=== PATIENT | female | born 1970 | race Caucasian/White ===

== ENCOUNTER 2017-12-27 08:16 | Day surgery (SDC) | payer BC ==
[~2017-12-27 08:16] MED LIST: Lactated Ringers 1,000 ML IV SCH
[2017-12-27] MEDS ORDERED: Propofol 200 MG/20 ML SDV ONE ×2 (10:23→10:36)
[2017-12-27] MEDS ORDERED: fentaNYL 100 MCG/2 ML SDV ONE (10:24)
--- NOTE | 2017-12-27 12:01 | OR ---
PREOPERATIVE DIAGNOSIS: Bleeding internal hemorrhoids. POSTOPERATIVE DIAGNOSIS: Bleeding internal hemorrhoids. PROCEDURE PROPOSED: Anoscopy with hemorrhoid banding x2. PROCEDURE DONE: Anoscopy with hemorrhoid banding x2. INDICATIONS: A 47-year-old female with diagnosed internal hemorrhoids that are bleeding. She also has some external hemorrhoidal tissue. It was felt that she should undergo anoscopy with possible banding. TECHNIQUE: The patient was already sedated from her colonoscopy. The lighted anoscope was then used to inspect all 3 quadrants. In the right anterior quadrant, she had significant hemorrhoid bundle that appeared to be bleeding and oozing some blood. I put 2 hemorrhoid bands in that area using the suction hemorrhoid banding technique. The other 2 quadrants did not appear to have any significant hemorrhoids. This procedure was then terminated, which she tolerated well and will be followed up in the office as needed. SCM: 12/27/2017 10:53:24 MODL: 12/27/2017 11:42:30 /[id number]
--- NOTE | 2017-12-27 12:01 | OR ---
PREOPERATIVE DIAGNOSIS: Rectal bleeding. POSTOPERATIVE DIAGNOSIS: Normal colonoscopic exam, internal hemorrhoids. PROCEDURE PROPOSED: Total flexible colonoscopy. PROCEDURE DONE: Total flexible colonoscopy. INDICATION: This is a 47-year-old female referred for colonoscopy due to history of rectal bleeding. She denies any pain. She has been treated for hemorrhoids and she does feel she has hemorrhoids. She has a negative family history for colon pathology. TECHNIQUE: The patient was brought to the endoscopy suite, placed in left lateral decubitus position. She was sedated per TAXONOMIST with propofol. The flexible video colonoscope was then passed transanally and under visualization advanced to the cecum. Examination revealed normal ascending, transverse, descending, sigmoid, and rectal colon. There was no evidence of any diverticulosis, colitis, or other abnormalities and the scope was then withdrawn. She tolerated the procedure well. She was noted to have some internal hemorrhoids on withdrawal of the scope. These will be further investigated with anoscopy. FINAL IMPRESSION: Normal colonoscopic exam, likely internal hemorrhoids as the bleeding source. PLAN: The patient will also have anoscopy with possible hemorrhoid banding. I feel that she should be good for least 10 years before she needs a repeat colonoscopy. SCM: 12/27/2017 10:53:24 MODL: 12/27/2017 11:38:17 /[id number]
== END 2017-12-27 11:55 | disposition home or self-care (01) ==
LOC: VM.SDS 08:16
PROVIDERS: ATTEND Surgery
DX: K64.8 Other hemorrhoids (principal); I10 Essential (primary) hypertension; E66.9 Obesity, unspecified; Z68.32 Body mass index [BMI] 32.0-32.9, adult; Z87.891 Personal history of nicotine dependence; Z79.899 Other long term (current) drug therapy; Z88.0 Allergy status to penicillin; Z88.1 Allergy status to other antibiotic agents; Z88.8 Allergy status to other drugs, medicaments and biological substances; Z88.5 Allergy status to narcotic agent
CPT/HCPCS: 45378; 46945; J2704; J3010; J7120

== ENCOUNTER 2020-04-03 08:15 | Emergency (ER) | payer BC ==
[2020-04-03] MEDS ORDERED: Sodium Chloride 0.9% 10 ML Syringe FLUSH PRN (08:31)
[2020-04-03] MEDS ORDERED: Sodium Chloride 0.9% 1,000 ML IV ONE (08:37)
[2020-04-03] MEDS ORDERED: Aspirin 81 MG Tab.Chew PO ONE (08:37)
[2020-04-03] MEDS: Nitroglycerin 0.4 MG Tab.SL SL ONE ×2 (08:37→08:50)
[2020-04-03] MEDS ORDERED: Ondansetron 4 MG/2 ML SDV IVPUSH ONE (08:44)
--- NOTE | 2020-04-03 08:44 | EDM.PDOC ---
ED HPI GENERAL MEDICAL PROBLEM - General Chief Complaint: Chest Pain Stated Complaint: chest pain Time Seen by Provider: 04/03/20 08:25 Source of Information: Reports: Patient History Limitations: Reports: No Limitations - History of Present Illness INITIAL COMMENTS - FREE TEXT/NARRATIVE: Patient comes into the emergency department with complaint of chest discomfort. Patient states it started approximately 2 hours prior to arrival to the emergency department. Patient states that it started with a sudden onset of chest pressure in the mid sternal section. He states that it does radiate up to her jaw and neck on the left side. Patient also states that she did become short of breath for short period of time. Patient Also endorses that she is had a headache the headache had started proximately yesterday and has slowly progressed throughout the night into today. Patient describes the chest pain as pressure that does not alleviate with any movement or taking a deep breath. The discomfort does not change with palpation either. Patient denies a history of any coronary vascular disease or any medication to help with coronary artery disease. Patient states that she is been relatively healthy does not have any previous COVID-19 exposure or positive test. Onset: Sudden Location: Reports: Chest Quality: Reports: Pressure Severity: Severe Improves with: Reports: None Worsens with: Reports: None Context: Reports: Other Associated Symptoms: Reports: Chest Pain, Headaches, Shortness of Breath (when the pain first started. resolved now). Denies: Malaise, Nausea/Vomiting, Syncope, Weakness - Related Data Allergies Allergy/AdvReac Type Severity Reaction Status Date / Time acetaminophen [From Ultracet] Allergy Nausea and Verified 04/03/20 09:32 Vomiting amitriptyline Allergy Other Verified 04/03/20 09:32 ampicillin Allergy Rash Verified 04/03/20 09:32 codeine Allergy Cannot Verified 04/03/20 09:32 Remember lamotrigine [From Lamictal] Allergy Hives Verified 04/03/20 09:32 minocycline Allergy Headache Verified 04/03/20 09:32 Penicillins Allergy Rash Verified 04/03/20 09:32 tramadol [From Ultracet] Allergy Nausea and Verified 04/03/20 09:32 Vomiting Home Meds: Home Meds Lisdexamfetamine Dimesylate [Vyvanse] 50 mg PO DAILY 03/09/17 [History] Spironolactone [Aldactone] 100 mg PO BID 03/09/17 [History] buPROPion [Wellbutrin XL] 450 mg PO DAILY 03/09/17 [History] Past Medical History HEENT History: Reports: None Cardiovascular History: Reports: Hypertension Respiratory History: Reports: None Gastrointestinal History: Reports: Hemorrhoids, Other (See Below) Other Gastrointestinal History: rectal bleeding Genitourinary History: Reports: None CALL WORKER History: Reports: None Musculoskeletal History: Reports: None Neurological History: Reports: Neuropathy, Peripheral Psychiatric History: Reports: ADD, Anxiety, Bipolar, Depression, Other (See Below) Other Psychiatric History: insomnia Endocrine/Metabolic History: Reports: Obesity/BMI 30+, Vitamin D Deficiency Hematologic History: Reports: Iron Deficiency Immunologic History: Reports: None Oncologic (Cancer) History: Reports: None Dermatologic History: Reports: Other (See Below) Other Dermatologic History: acne vulgaris - Past Surgical History Head Surgeries/Procedures: Reports: None HEENT Surgical History: Reports: None Cardiovascular Surgical History: Reports: None Respiratory Surgical History: Reports: None GI Surgical History: Reports: None Female Surgical History: Reports: Hysterectomy, Tubal Ligation Endocrine Surgical History: Reports: None Neurological Surgical History: Reports: None Musculoskeletal Surgical History: Reports: None Dermatological Surgical History: Reports: None ED ROS GENERAL - Review of Systems Review Of Systems: Comprehensive ROS is negative, except as noted in HPI. Constitutional: Denies: Fever, Chills, Malaise, Weakness, Fatigue, Night Sweats, Diaphoresis HEENT: Reports: No Symptoms Respiratory: Reports: No Symptoms Cardiovascular: Reports: Chest Pain Endocrine: Reports: No Symptoms GI/Abdominal: Reports: No Symptoms : Reports: No Symptoms Musculoskeletal: Reports: No Symptoms Skin: Reports: No Symptoms Neurological: Reports: No Symptoms Psychiatric: Reports: No Symptoms Hematologic/Lymphatic: Reports: No Symptoms Immunologic: Reports: No Symptoms ED EXAM, GENERAL - Physical Exam Exam: See Below Exam Limited By: No Limitations General Appearance: Alert, WD/WN, No Apparent Distress Eye Exam: Bilateral Eye: EOMI, PERRL Throat/Mouth: Normal Inspection, Normal Lips, Normal Voice, No Airway Compromise Head: Atraumatic, Normocephalic Neck: Normal Inspection, Supple, Non-Tender, Full Range of Motion Respiratory/Chest: No Respiratory Distress, Lungs Clear, Normal Breath Sounds, No Accessory Muscle Use, Chest Non-Tender Cardiovascular: Normal Peripheral Pulses, Regular Rate, Rhythm, No Edema Peripheral Pulses: 4+: Radial (L), Radial (R), Dorsalis Pedis (L), Dorsalis Pedis (R) GI/Abdominal: Normal Bowel Sounds, Soft, Non-Tender, No Organomegaly, No Distention, No Abnormal Bruit, No Mass Back Exam: Normal Inspection, Full Range of Motion Extremities: Normal Inspection, Normal Range of Motion, Non-Tender, No Pedal Edema, Normal Capillary Refill Neurological: Alert, Oriented, CN II-XII Intact, Normal Cognition, Normal Gait Psychiatric: Normal Affect, Normal Mood Skin Exam: Warm, Dry, Intact, Normal Color, No Rash Course - Vital Signs Last Recorded V/S: Last Vital Signs Temp Pulse Resp BP 124/84 04/03/20 08:50 Pulse Ox - Orders/Labs/Meds Orders: Active Orders 24 hr Category Date Time Status EKG Documentation Completion [RC] STAT Care 04/03/20 08:31 Ordered Sodium Chloride 0.9% [Saline Flush] Med 04/03/20 08:31 Ordered 10 ml FLUSH ASDIRECTED PRN Peripheral IV Insertion Adult [OM.PC] Stat Oth 04/03/20 08:31 Ordered Medication Orders Sodium Chloride (Saline Flush) 10 ml FLUSH ASDIRECTED PRN PRN Reason: Keep Vein Open Labs: Laboratory Tests 04/03/20 04/03/20 04/03/20 Range/Units 08:27 08:30 08:30 WBC 7.5 (4.0-10.0) x10^3/uL RBC 4.91 (4.00-5.50) x10^6/uL Hgb 14.1 (12.0-16.0) g/dL Hct 41.7 (33.0-47.0) % MCV 84.9 (78.0-93.0) fL MCH 28.7 (26.0-32.0) pg MCHC 33.8 (32.0-36.0) g/dL RDW Coeff of [place] 12.5 (10.0-15.0) % Plt Count 351 (130-400) x10^3/uL Neut % (Auto) 57.7 (50.0-80.0) % Lymph % (Auto) 32.9 (25.0-50.0) % [place] % (Auto) 7.1 (2.0-11.0) % Eos % (Auto) 1.9 (0.0-4.0) % Baso % (Auto) 0.4 (0.2-1.2) % Sodium 136 (136-145) mmol/L Potassium 4.1 (3.5-5.1) mmol/L Chloride 99 (98-107) mmol/L Carbon Dioxide 27 (21-32) mmol/L Anion Gap 14.1 (10-20) mmol/L BUN 12 (7-18) mg/dL Creatinine 1.2 H (0.55-1.02) mg/dL Est Cr Clr Drug Dosing TNP Estimated GFR (MDRD) 48 Glucose 83 (74-106) mg/dL Calcium 9.1 (8.5-10.1) mg/dL Corrected Calcium 9.42 (8.5-10.1) mg/dL Total Bilirubin 0.3 (0.2-1.0) mg/dL AST 15 (15-37) U/L ALT 14 (14-59) U/L Alkaline Phosphatase 70 (46-116) U/L Troponin I < 0.017 (<=0.056) ng/mL NT-Pro-B Natriuret Pep 89 (<=125) pg/mL Total Protein 7.4 (6.4-8.2) g/dL Albumin 3.6 (3.4-5.0) g/dL Globulin 3.8 Albumin/Globulin Ratio 0.95 SARS CoV-2 RNA Rapid MANNY Negative (NEGATIVE) Meds: Medications Generic Name Dose Route Start Last Admin Trade Name Freq PRN Reason Stop Dose Admin Sodium Chloride 10 ml 04/03/20 08:31 Saline Flush FLUSH ASDIRECTED PRN Keep Vein Open Discontinued Medications Generic Name Dose Route Start Last Admin Trade Name Freq PRN Reason Stop Dose Admin Aspirin 324 mg 04/03/20 08:37 04/03/20 08:38 Aspirin PO 04/03/20 08:38 324 mg ONETIME ONE Administration Sodium Chloride 1,000 mls @ 1,000 mls/hr 04/03/20 08:37 04/03/20 08:30 Normal Saline IV 04/03/20 09:36 1,000 mls/hr ONETIME ONE Administration Nitroglycerin 0.4 mg 04/03/20 08:37 04/03/20 08:50 Nitrostat SL 04/03/20 08:38 0.4 mg ONETIME ONE Administration Nitroglycerin 0.4 mg 04/03/20 08:49 Nitrostat SL 04/03/20 08:50 ONETIME ONE Ondansetron HCl 4 mg 04/03/20 08:44 04/03/20 08:50 Zofran IVPUSH 04/03/20 08:45 4 mg ONETIME ONE Administration Departure - Departure Time of Disposition: 09:45 Disposition: Home, Self-Care 01 Condition: Fair Clinical Impression: Acute coronary syndrome Chest pain Qualifiers: Chest pain type: unspecified Qualified Code(s): R07.9 - Chest pain, unspecified - Discharge Information *PRESCRIPTION DRUG MONITORING PROGRAM REVIEWED*: Not Applicable *COPY OF PRESCRIPTION DRUG MONITORING REPORT IN PATIENT JONO: Not Applicable Instructions: Angina, [id number] Forms: ED Department Discharge, Refusal of Care AMA Additional Instructions: 1. rest 2. increase your water intake 3. Continue all at home medications 4. Activity and diet as tolerated 5. Can take over the counter Tylenol for any pain or discomfort 6. Follow up with PCP if symptoms continue, return, or progress 7. Call with any questions or concerns 8. It was advised that you would remain at the hospital for further cardiac monitoring and evaluation. If signs and symptoms to return please call [address]. Attached is a documentation that you had signed regarding leaving AGAINST MEDICAL ADVICE. If again the symptoms do return please contact 911 and return to the emergency department immediately for re-evaluation and treatment options. Sepsis Event Note (ED) - Focused Exam Vital Signs: Vital Signs BP 04/03/20 08:50 124/84 04/03/20 08:37 140/82 - My Orders Last 24 Hours: My Active Orders 04/03/20 08:31 EKG Documentation Completion [RC] STAT Sodium Chloride 0.9% [Saline Flush] 10 ml FLUSH ASDIRECTED PRN Peripheral IV Insertion Adult [OM.PC] Stat - Assessment/Plan Last 24 Hours: My Active Orders 04/03/20 08:31 EKG Documentation Completion [RC] STAT Sodium Chloride 0.9% [Saline Flush] 10 ml FLUSH ASDIRECTED PRN Peripheral IV Insertion Adult [OM.PC] Stat Assessment:: 1. chest pain 2. headache Plan: 1. Labs completed in the ER. Results reviewed with the patient 2. IV initiated in the emergency department 3. IV fluids provided 4. Chest xray completed in ER. Results reviewed with the patient 5. ASA 324mg chewable was given to the patient 6. EKG was completed in ER. Results reviewed with the patient 7. Nitro 0.4 SL given x2 in ER. Pt had relief after each tablet. 8. Nursing collect covid-19 testing due to symptoms of headache 9. Patient and nursing staff was updated regarding the plan of care 10. Discussed with the patient in great length regarding hospital admission for rule out of an end STEMI and unstable angina. Patient is unwilling to stay. Patient is willing to sign AMA paperwork. Patient states that she will assume all risks including worsening Pain, irreversible deficits, and not excluding up to .Patient states her understanding and is willing to sign the paperwork and be discharged. Did discuss with the patient that she needs contact now immediately if her signs and symptoms to return and not to drive. 11. Education provided the patient regarding activity, diet, rest, [id number] medication modalities, and follow-up care was provided 12. Patient and family are agreeable to the above plan of care 13. All questions and concerns were addressed with the patient and family prior to discharge
[2020-04-03] MEDS ORDERED: Nitroglycerin 0.4 MG Tab.SL SL ONE (08:49)
[2020-04-03 09:08] LABS: ANION GAP 14.1 mmol/L (10-20); CHLORIDE,CL 99 mmol/L (98-107); SODIUM,NA 136 mmol/L (136-145)
--- NOTE | 2020-04-03 09:24 | CR ---
[id number] RAD/RAD Chest PA or AP 1V EXAM: RAD Chest PA or AP 1V INDICATION: CHEST PAIN. COMPARISON: None. DISCUSSION: Cardiomediastinal silhouette is normal in size and contour. No infiltrate, effusion, pneumothorax, or edema. IMPRESSION: Negative examination of the chest. Waqas Shepherd MD 04/03/20 0922 Thank you for allowing us to participate in the care of your patient.
== END 2020-04-03 09:52 | disposition home or self-care (01) ==
LOC: VM.ED 08:15
DX: I24.9 Acute ischemic heart disease, unspecified (principal); R51.9 Headache, unspecified; Z20.828 Contact with and (suspected) exposure to other viral communicable diseases; I10 Essential (primary) hypertension; E66.9 Obesity, unspecified; F41.9 Anxiety disorder, unspecified; F31.9 Bipolar disorder, unspecified; Z88.5 Allergy status to narcotic agent; Z88.0 Allergy status to penicillin; Z88.1 Allergy status to other antibiotic agents; Z88.8 Allergy status to other drugs, medicaments and biological substances; Z79.899 Other long term (current) drug therapy; Z98.51 Tubal ligation status; Z90.710 Acquired absence of both cervix and uterus; Z68.31 Body mass index [BMI] 31.0-31.9, adult
CPT/HCPCS: 71045; 80053; 83880; 84484; 85025; 93005; 96361; 96374; 99285-25; A9270-GY; J2405; J7030; U0002

== ENCOUNTER 2021-08-10 23:27 | Emergency (ER) | payer BC ==
[2021-08-10] MEDS: Nitroglycerin 0.4 MG Tab.SL SL PRN ×2 (23:28→23:33)
[2021-08-10] MEDS ORDERED: GI Cocktail Oral Solution 30 ML PO ONE (23:36)
[2021-08-10 23:49] LABS: CHLORIDE,CL 100 mmol/L (98-107); SODIUM,NA 135 mmol/L (136-145)
[2021-08-10 23:50] LABS: ANION GAP 9.6 mmol/L (5-15)
[2021-08-11] MEDS ORDERED: Aspirin 81 MG Tab.Chew PO ONE (00:47)
== END 2021-08-11 00:20 | disposition home or self-care (01) ==
LOC: VM.ED 23:27
DX: R07.2 Precordial pain (principal); I10 Essential (primary) hypertension; E66.9 Obesity, unspecified; Z68.29 Body mass index [BMI] 29.0-29.9, adult; Z88.0 Allergy status to penicillin; Z88.5 Allergy status to narcotic agent; Z88.8 Allergy status to other drugs, medicaments and biological substances
CPT/HCPCS: 36415; 80048; 84484; 85025; 93005; 93010; 99284; 99285; A9270

== ENCOUNTER 2025-03-04 11:08 | Emergency (ER) | payer BC ==
[2025-03-04 11:33] LABS: BASOPHILS ABSOLUTE AUTO 0.0 x10^3/uL (0.0-0.2); BASOPHILS PERCENT AUTO 0.2 % (0.2-1.2); EOSINOPHILS ABSOLUTE AUTO 0.1 x10^3/uL (0.0-0.5); EOSINOPHILS PERCENT AUTO 0.7 % (0.0-4.0); IMMATURE GRAN ABSOLUTE AUTO 0.02 x10^3/uL (0.00-0.07); IMMATURE GRAN PERCENT AUTO 0.20 % (0.00-0.43); LYMPHOCYTES ABSOLUTE AUTO 2.0 x10^3/uL (1.0-4.8); LYMPHOCYTES PERCENT AUTO 21.3 % (25.0-50.0); MONOCYTES ABSOLUTE AUTO 0.5 x10^3/uL (0.0-0.8); MONOCYTES PERCENT AUTO 5.6 % (2.0-11.0); NEUTROPHILS ABSOLUTE AUTO 6.7 x10^3/uL (1.8-7.7); NEUTROPHILS PERCENT AUTO 72.0 % (50.0-80.0); PLATELET COUNT,PLT 332 x10^3/uL (130-400); RED BLOOD CELL COUNT 5.04 x10^6/uL (4.00-5.50); WHITE BLOOD CELL COUNT,WBC 9.3 x10^3/uL (4.0-10.0)
[2025-03-04] MEDS ORDERED: Naloxone 0.4 MG/ML SDV IVPUSH PRN (11:39)
[2025-03-04] MEDS: Ondansetron 4 MG/2 ML SDV IVPUSH ONE (11:52)
[2025-03-04 11:54] LABS: A/G RATIO 1.22; ALANINE AMINOTRANSFERASE,ALT 44 U/L (14-59); ASPARTATE AMNIOTRANSFERASE,AST 109 U/L (15-37); BILIRUBIN TOTAL 0.4 mg/dL (0.2-1.0); BLOOD UREA NITROGEN,BUN 14 mg/dL (7-18); CARBON DIOXIDE,CO2 28 mmol/L (21-32); CHLORIDE,CL 102 mmol/L (98-107); CREATININE 1.0 mg/dL (0.55-1.02); GLUCOSE RANDOM 93 mg/dL (70-99); POTASSIUM,K 4.1 mmol/L (3.5-5.1); PROTEIN TOTAL,TP 7.1 g/dL (6.4-8.2); SODIUM,NA 138 mmol/L (136-145)
[2025-03-04 11:55] LABS: ESTIMATED GFR 67 mL/min (>=60)
[2025-03-04] MEDS: Iopamidol 612 MG/ML 100 ML Bottle IVPUSH ONE (12:34)
== END 2025-03-04 15:46 | disposition short-term general hospital (02) ==
LOC: VM.ED 11:08
DX: K83.1 Obstruction of bile duct (principal); I10 Essential (primary) hypertension; Z79.899 Other long term (current) drug therapy; Z88.0 Allergy status to penicillin; Z88.5 Allergy status to narcotic agent; Z88.6 Allergy status to analgesic agent; Z88.8 Allergy status to other drugs, medicaments and biological substances
CPT/HCPCS: 36415; 74160; 80053; 83690; 85025; 96374; 96375; 99285-25; J1171; J2405; Q9967